=== PATIENT | male | born 1950 ===

== ENCOUNTER 2025-07-11 11:43 | Inpatient (IN) | payer MEDICARE, OTHER, SELFPAY ==
[2025-07-11] VITALS (9 sets, daily range): BP systolic 132–155; BP diastolic 61–89; BMI 28.5
--- NOTE | 2025-07-11 05:38 | ED.GENMED ---
History of Present Illness
<Claudia Hernandez PA-C - Last Filed: 07/11/25 06:48>
General
Chief Complaint: Musculo-Skeletal Complaint
Source: patient and family
Exam Limitations: none
Time Seen by Provider: 07/11/25 05:13
Nursing documentation reviewed up to this point in time: agreed with
History of Present Illness
History of Present Illness:
see MDM
Past History
<Claudia Hernandez PA-C - Last Filed: 07/11/25 06:48>
Past History
ED Past Medical History: CAD, GERD, HTN, Hypercholesterolemia and NC
ED Past Surgical History: Cardiac (Cardiac catheterization in 2018)
Social History
Tobacco: Non-smoker
Alcohol: None
Drug: None
Personal:
Living: with family
Family History
Family History: Other
Review of Systems
<Claudia Hernandez PA-C - Last Filed: 07/11/25 06:48>
Review of Systems
Allergies reviewed?: Yes
All Other Systems: Not applicable
Phy Exam
<KARTHIKEYAN Leyva Last Filed: 07/11/25 06:48>
Physical Exam
Physical Exam:
GENERAL: Alert lying face down on stretcher; uncomfortable with changing position
HEAD: NCAT
NECK: no midline tenderness, active ROM intact, no paraspinal muscle tenderness;
CARDIAC: Regular rate and rhythm, no edema
LUNGS: Clear breath sounds bilaterally, no acute respiratory distress, no wheezes/rales/rhonchi
ABDOMEN: Soft, without focal tenderness, no r/g, no cvat, normal bowel sounds, nondistended
NEUROLOGICAL: Alert and oriented, no focal neuro deficits, CN intact, 5/5 strength, sensation intact, ambulation slight limp left leg
SKIN: Warm and dry, skin normal
MUSCULOSKELETAL: No edema, well perfused. Normal inspection of the left hip, left leg
Patient has no tenderness to palpation of the hip, minimal tenderness in the SI joint
He has no pain with flexion of the left hip, external rotation, but with internal rotation has discomfort
Back: No midline tenderness, no tednerness to palpation
negative straight leg raise Bilaterally
strength an dsensation intact
PSYCH: Normal and appropriate interaction.
Course
<Claudia Hernandez PA-C - Last Filed: 07/11/25 06:48>
Orders/Labs/Results
Orders:
Orders
07/11/25 05:29
0.9% Sodium Chloride 500 ml [Nss] 500 ml IV BOLUS
HYDROmorphone [Dilaudid] 1 mg IV NOW STA
Ondansetron Injectable [Zofran] 4 mg IV NOW STA
07/11/25 05:57
Complete Blood Count/With Diff Urgent
Comprehensive Metabolic Panel Urgent
Lipase Urgent
07/11/25 06:03
Ketorolac [Toradol] 15 mg IV NOW STA
07/11/25 06:41
Electrocardiogram (*1) Urgent
Reason for Study: Fatigue / Weakness
EKG- Treatment ONCE
Osmolality, Random Urine Urgent
Serum Osmolality Urgent
Urine Sodium Urgent
Abnormal Lab Results
07/11/25
05:57
RBC 4.43 L 10^6/uL
(4.70-6.10)
Hct 37.6 L %
(39.0-52.0)
Abs Immat Gran (auto) 0.1 H 10^3/uL
(0-0.05)
Absolute Neuts (auto) 7.5 H 10^3/uL
(1.4-6.5)
Absolute Lymphs (auto) 0.4 L 10^3/uL
(1.2-3.4)
Absolute Monos (auto) 0.7 H 10^3/uL
(0.1-0.6)
Immature Gran % 0.6 H %
(0-0.5)
Neutrophils % 86.7 H %
(42.2-75.2)
Lymphocytes % 4.3 L %
(20.5-51.1)
Sodium 120 L mmol/L
(135-145)
Chloride 88 L mmol/L
(98-107)
Creatinine 0.6 L mg/dL
(0.7-1.3)
Glucose 177 H mg/dl
(70-99)
Total Protein 5.9 L g/dl
(6.3-8.2)
07/11/25 05:57
07/11/25 05:57
Vital Signs
Initial and Last Documented VS:
Initial Vital Signs
Temp Pulse Resp BP Pulse Ox
97.6 F 74 16 155/89 99
07/11/25 05:07 07/11/25 05:07 07/11/25 05:07 07/11/25 05:07 07/11/25 05:07
Last Documented Vital Signs
Temp Pulse Resp BP Pulse Ox
97.6 F 74 16 155/89 99
07/11/25 05:07 07/11/25 05:07 07/11/25 05:07 07/11/25 05:07 07/11/25 05:40
<Gregg Burnham, DO - Last Filed: 07/11/25 06:45>
Orders/Labs/Results
Orders:
Orders
07/11/25 05:29
0.9% Sodium Chloride 500 ml [Nss] 500 ml IV BOLUS
HYDROmorphone [Dilaudid] 1 mg IV NOW STA
Ondansetron Injectable [Zofran] 4 mg IV NOW STA
07/11/25 05:57
Complete Blood Count/With Diff Urgent
Comprehensive Metabolic Panel Urgent
Lipase Urgent
07/11/25 06:03
Ketorolac [Toradol] 15 mg IV NOW STA
07/11/25 06:41
Electrocardiogram (*1) Urgent
Reason for Study: Fatigue / Weakness
EKG- Treatment ONCE
Osmolality, Random Urine Urgent
Serum Osmolality Urgent
Urine Sodium Urgent
Abnormal Lab Results
07/11/25
05:57
RBC 4.43 L 10^6/uL
(4.70-6.10)
Hct 37.6 L %
(39.0-52.0)
Abs Immat Gran (auto) 0.1 H 10^3/uL
(0-0.05)
Absolute Neuts (auto) 7.5 H 10^3/uL
(1.4-6.5)
Absolute Lymphs (auto) 0.4 L 10^3/uL
(1.2-3.4)
Absolute Monos (auto) 0.7 H 10^3/uL
(0.1-0.6)
Immature Gran % 0.6 H %
(0-0.5)
Neutrophils % 86.7 H %
(42.2-75.2)
Lymphocytes % 4.3 L %
(20.5-51.1)
Sodium 120 L mmol/L
(135-145)
Chloride 88 L mmol/L
(98-107)
Creatinine 0.6 L mg/dL
(0.7-1.3)
Glucose 177 H mg/dl
(70-99)
Total Protein 5.9 L g/dl
(6.3-8.2)
07/11/25 05:57
07/11/25 05:57
Vital Signs
Initial and Last Documented VS:
Initial Vital Signs
Temp Pulse Resp BP Pulse Ox
97.6 F 74 16 155/89 99
07/11/25 05:07 07/11/25 05:07 07/11/25 05:07 07/11/25 05:07 07/11/25 05:07
Last Documented Vital Signs
Temp Pulse Resp BP Pulse Ox
97.6 F 74 16 155/89 99
07/11/25 05:07 07/11/25 05:07 07/11/25 05:07 07/11/25 05:07 07/11/25 05:40
<Claudia Hernandez PA-C - Last Filed: 07/11/25 06:48>
MDM/Problems Addressed
Differential Diagnosis Includes:
see MDM
MDM/Problems Addressed:
Note:
CHIEF COMPLAINT(S)
Back pain radiating to the left leg, nausea, and vomiting.
HISTORY OF PRESENT ILLNESS
The patient, 75 y/o male, h/o CAD, HTN, HLD, presents with back pain that radiates from the left buttock/hip to the knee on the left leg. The pain started approximately two weeks ago after lifting a heavy object. He describes the pain as worsening
and persistent. went to orthopedist yesterday AM where he was given IM injection/trigger point NSAID injection and RX for MRI which pt had done yesterday without results.
he was given percocet an took a total of 3 tabs but the pain is worsening. he vomited x 3 at home just prior to arrival, unclear whether it was related to the oxy or to jus thaving pain
he is not having abdomianl pain, nausea,, abd swelling etc.
pt says he mostly has knee pain currently. There is mild numbness on the side of the leg, but he denies any bowel or bladder incontinence. The patient also reports that its challenging to sit, as this exacerbates the pain.
PAST MEDICAL AND SURIGICAL HISTORY
The patient takes a daily low-dose aspirin (referred to as a 'baby aspirin'), which he did not take recently.
ADDITIONAL HISTORY OBTAINED FROM SOURCES OTHER THAN THE PATIENT
The information about the patients condition and recent medical encounters was partially provided by the patients female electrician journeyman wireman, presumed to be his spouse. She confirmed the duration of the symptoms and the name of the prescribing physician for
the MRI and medications.
MEDICATIONS
The patient was prescribed and has taken oxycodone 5-325 mg, three times, leading to episodes of vomiting.
REVIEW OF SYSTEMS
- Neurological: Reports mild numbness on the side of the left leg.
- Gastrointestinal: Vomiting three times after taking prescribed medication; no abdominal pain.
- Genitourinary: Denies any urinary incontinence.
- Musculoskeletal: Severe pain radiating from back to left leg, particularly exacerbated with sitting.
PHYSICAL EXAM
see above
Nursing notes reviewed and vital signs reviewed.
PLAN
- Consideration of alternative pain management strategies due to vomiting after oxycodone.
- Further evaluation of MRI results when available.
- Monitor for any changes in neurological status, particularly regarding numbness and any potential bowel or bladder changes.
DIFFERENTIAL DIAGNOSIS
The Differential Diagnosis includes, in no particular order and is not limited to:
- Sciatica or lumbar radiculopathy
- Spinal disk herniation
- Hip joint pathology (e.g., osteoarthritis)
- Muscle strain or sprain
- Sacroiliac joint dysfunction
- Peripheral neuropathy
- Lumbar spinal stenosis
- Piriformis syndrome
- Trochanteric bursitis
- Infectious causes (e.g., epidural abscess)
75-year-old male with a history of CAD presents with 2 weeks of left-sided lumbar back pain radiating down the back of his leg to his knee. He happened to have orthopedic appointment yesterday and had an outpatient MRI at this hospital which was
not read yet. Patient was given a prescription for oxycodone. It sounds as if the oxycodone caused some nausea as the patient felt worse after the third dose and vomited several times just before arrival. He is also having increased pain in his
left leg specifically thigh and knee. He is not having any numbness tingling or weakness, there is no incontinence or urinary retention. Patient denied that he was excessively drinking water. He has never had an issue with his sodium before. On
exam he looks very uncomfortable with change in position but was comfortable lying flat on his stomach. He had normal strength and sensation to the leg without straight leg raise, no weakness. Did not femoral and DP pulses are intact. His abdomen
soft and nontender.
Patient's pain seems like lumbar radiculopathy and likely his vomiting was related to the opiates or related to pain however I did check his labs which show that he is hyponatremic with a sodium of 120.
Patient is awake and alert and oriented, he does feel generally weak.
Will order urine studies and admit to the hospitalist service
<Claudia Hernandez PA-C - Last Filed: 07/11/25 06:48>
*Pulse Oximetry
SaO2: 99
Oxygen Mode of Delivery: Room air
Patient hypoxic: no (99)
*Critical Care Note
Total Time (30-74mins, 75-104mins- exclusive of procedures): Not Applicable
ED Attending Note
<Claudia Hernandez PA-C - Last Filed: 07/11/25 06:48>
-
Portions of this chart may have been created with voice recognition software.� Occasional wrong word or��sound alike� substitutions may have occurred due to the inherent limitations of voice recognition software.
<Gregg Burnham, - Last Filed: 07/11/25 06:45>
ED Attending Note
Patient seen and examined by attending physician: Yes
ED Attending Note:
I reviewed and agree with history and treatment plan by Claudia Hernandez PA-C. My exam revealed
Physical Exam
General: Appears uncomfortable, alert and oriented x 3
Neck: supple. no meningeal signs. normal posterior pharynx
Heart: s1/s2 regular rate and rhythm, no murmur. equal radial
pulses.
HEENT: Pupils equal round reactive to light, EOMI
Lungs: no acute respiratory distress. clear bilaterally
Abdomen: normal bowel sounds. not tender. no CVAT
Neuro: alert and oriented. no focal neurological deficits cranial nerves II through XII intact
Skin: no rash
Psychiatric: well kept. interactive and cooperative
Extremities: no edema. no calf tenderness. negative homans. good distal pulses
75-year-old male with left leg pain and back pain. MRI completed, but not read. Patient had vomited, after taking oxycodone. Is found to have a sodium of 120. Unclear etiology, possibly hyperhydration. Will admit for further workup and
evaluation, as well as pain control.
Discharge Plan
Departure
Discharge Problem:
Hyponatremia, Back pain
Prescriptions:
No Action
multivitamin [Daily Multiple] 1 EACH tablet
1 ea PO DAILY
atorvastatin 40 MG tablet
40 mg PO HS
aspirin [Aspir-Low] 81 MG tablet,delayed release (DR/EC)
81 mg PO DAILY
metoprolol succinate 25 MG tablet extended release 24 hr
25 mg PO DAILY
amlodipine-benazepril 1 EACH capsule
1 ea PO DAILY
clopidogrel 75 MG tablet
75 mg PO DAILY
nitroglycerin 0.4 MG tablet, sublingual
0.4 mg sublingual [id number] PRN (Reason: chest pain)
bupropion HCl 150 MG tablet extended release 24 hr
1 cap PO Daily
pantoprazole 40 MG tablet,delayed release (DR/EC)
20 mg PO DAILY
lamotrigine 100 MG tablet
100 mg PO BID
Interventions
Interventions:
*Risk Screen - Suicide Last Done: 07/11/25 05:07
*General Assessment Last Done: 07/11/25 05:07
*Neglect/Abuse Screening Last Done: 07/11/25 06:43
ED-Musculoskeletal Assessment Last Done: 07/11/25 06:00
Discharge Date and Time
Print Language: KOSOVAN
[2025-07-11] MEDS: DILAUDID 1 MG IV (06:00)
[2025-07-11] MEDS: ZOFRAN 4 MG IV ×2 (06:00→12:57)
[2025-07-11] MEDS: NSS 500 IV (06:01)
[2025-07-11 06:06] LABS: Hematocrit 37.6 % (39.0-52.0); Hemoglobin 13.7 g/dL (13.0-18.0); Mean Corp Hgb Conc. 36.4 g/dL (33.0-37.0); Mean Corpuscular Volume 84.9 fL (80.0-94.0); Nucleated Red Blood Cells % 0 % (-); Platelet Count 206 10^3/uL (130-400); Red Cell Dist. Width 12.6 % (11.5-14.5)
[2025-07-11] MEDS: TORADOL 15 MG IV ×2 (06:20→19:24)
[2025-07-11 06:32] LABS: ALT (SGPT) 19 U/L (0-50); AST (SGOT) 18 U/L (17-59); Albumin 3.6 g/dl (3.5-5.0); Alkaline Phosphatase 63 U/L (38-126); Blood Urea Nitrogen 16 mg/dl (9-20); Calcium 8.8 mg/dl (8.4-10.2); Carbon Dioxide 27 mmol/L (22-30); Chloride 88 mmol/L (98-107); Glucose 177 mg/dl (70-99); Lipase 32 U/L (23-300); Potassium 3.6 mmol/L (3.5-5.1); Sodium 120 mmol/L (135-145); Total Protein 5.9 g/dl (6.3-8.2); eGFR > 60.00
--- NOTE | 2025-07-11 11:07 | HPS.HSE ---
Family Physician
-
Family Physician: Lawanda Delacruz
Chief Complaint
-
Back pain and leg pain
History of Present Illness
75-year-old gentleman was in his usual state of health but then 2 weeks ago he lifted heavy object and that same evening he had low back pain.
His neighbor is a chiropractor and he worked on his back.
He was feeling okay. Then over the last week he started to feel more obvious pain in the back and then he started to experience pain down his left buttock lateral thigh and up to the knee. He was able to manage the pain at home and go to work but
it really got worse this week. Yesterday it was even worse ;exacerbates with movment or sitting posture. He went to see pain specialist with the [facility] yesterday and had trigger point injection to the leftt buttock area. He was also
given a prescription for MRI of the lumbar back which he finished last evening. He says after getting out of that stretcher and MRI department he had significantly worsened pain which went through all evening and night and he was feeling miserable
so he came to the hospital.
He was given oxycodone yesterday and it really made him sick and throw up.
Here in the ER he had Dilaudid which helped but pain has recurred. Pain is 10 out of 10 now. He says most of his pain is now in the left knee area and some in the left lateral buttock area as well. He also is feeling 10 out of 10 pain in the
lower back area.
No weight changes.
No trauma.
No bowel or bladder dysfunction.
Medical History
Past Medical History
Past Medical History: Reports CAD (CT, apparently has a blocked artery which cannot be stented), HTN, Hypercholesterolemia and CT; Denies CHF, CVA, IDDM, NIDDM or Renal Failure
Past Surgical History: Reports Cardiac (Cardiac catheterization)
Social History
Tobacco: Non-smoker
Alcohol: None
Drug: None
Personal:
Living: With Family
Family History
Family History: Not pertinent
Allergies / Home Medications
Allergies reflects when Allergies were last updated in [facility].
Home Medications with original date entered in [facility]
Allergy/Medication List:
Allergies
Allergy/AdvReac Type Severity Reaction Status Date / Time
No Known Allergies Allergy Verified 07/11/25 05:11
Home Medications
atorvastatin 40 mg tablet 40 mg PO HS High cholesterol 09/08/18
nitroglycerin 0.4 mg sublingual tablet 0.4 mg sublingual [id number] PRN chest pain 11/18/18
bupropion HCl 150 mg 24 hr tablet, extended release 150 mg PO Daily Depression 03/20/21
lamotrigine 100 mg tablet 100 mg PO BID Neurological Condition 03/20/21
benazepril 40 mg tablet 40 mg PO DAILY 07/11/25
chlorthalidone 12.5 mg tablet 12.5 mg PO DAILY 07/11/25
hydralazine 50 mg tablet 50 mg PO BID 07/11/25
nebivolol 5 mg tablet 5 mg PO QPM 07/11/25
oxycodone-acetaminophen 5 mg-325 mg tablet 1 tab PO Q6HPRN PRN severe pains 07/11/25
pantoprazole 20 mg tablet,delayed release (Protonix) 20 mg PO QPM 07/11/25
Review of Systems
-
A 12 point ROS was completed and negative except as noted: Yes
Physical Exam
Vital Signs
Vital Signs
Temp Pulse Resp BP Pulse Ox
97.6 F 57 16 137/62 99
07/11/25 05:07 07/11/25 10:15 07/11/25 10:15 07/11/25 10:00 07/11/25 05:40
Physical Exam
General: No Comfortable (Due to pain. Lying in the right lateral position for comfort.)
Respiratory: Clear and Non Labored Respirations; No Accessory Resp Muscle Use
Cardiac: S1/S2 and Regular Rhythm; No Tachycardia
GI: Soft and Non Tender
Neuro: AO x 3; No No Motor Deficits (Difficult examination as he is in right lateral position for comfort. Movement of his back n the legs gives pain. Upper extremities 5 x 5 strength cervantes, lower extremity 5 out of 5 distally.)
Psych: Calm
Laboratory Results
-
07/11/25 05:57
07/11/25 05:57
Laboratory Results
Total Bilirubin 1.3 mg/dl (0.2-1.3) 07/11/25 05:57
AST 18 U/L (17-59) 07/11/25 05:57
ALT 19 U/L (0-50) 07/11/25 05:57
Alkaline Phosphatase 63 U/L (38-126) 07/11/25 05:57
Lipase 32 U/L (23-300) 07/11/25 05:57
Data Reviewed
-
Lab Data: Labs Reviewed by me
Impression/Plan
-
Acute severe low back pain with left leg pain which looks like sciatica-nontraumatic.
Admit to hospital due to intractable nature for pain management and further evaluation of severe hyponatremia.
Will try and obtain a report on the MRI of the lumbar spine he had yesterday
Start on Tylenol, tramadol, Flexeril, IV Dilaudid.
Add IV steroids for now
Consider epidural injection depending on MRI report.
Euvolemic hyponatremia-suspect secondary possibly pain and nausea/vomiting. Start fluid restriction to 40 ounces per day. Check TSH and cortisol. Check urine sodium and osmolality. Consult nephrology.
CAD status post prior CT-asymptomatic without angina. Continue with his home medication regimen
Hypertension-continue the home medication regimen
Hyperlipidemia-continue with statins
Full code
[2025-07-11] MEDS: DILAUDID 0.5 MG IV ×4 (11:08→22:59)
--- NOTE | 2025-07-11 12:05 | CM ---
Met with patient and spouse at bedside in the ED
Pharmacy verified: [facility] @ [phone]
Lives with ; multilevel home; 2 steps to enter, 20 steps to 2nd floor; railings present; half bath on 1st floor; 2nd floor bath has walk-in shower
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
DME: [employer]
NO home health or SNF utilization history
will provide transport home
Plan: anticipate discharge to home when stable; case management will monitor for needs and coordinated if recommended
[2025-07-11] MEDS: DILAUDID 0.25 MG IV (13:02)
--- NOTE | 2025-07-11 13:08 | W.CON.NEPH ---
Consultation
-
Date/Time Consultation Requested: 07/11/2025 12 PM
Date/Time Consultation Performed: 07/11/2025 1 PM
Requesting Provider: Dr. Alva
Performing Provider: Dr. Hood
Reason for Consultation: Hyponatremia
Medical History
-
Chief Complaint: Back pain
History of Present Illness:
75-year-old gentleman who has hypertension controlled on a multidrug regimen including chlorthalidone, hyperlipidemia controlled with statin therapy. He had lifted a heavy object about 2 weeks ago and developed low back pain. This pain then
worsened running down his left buttock into the thigh and to the knee. He saw orthopedic surgery and had a trigger point injection in the left buttock area, and anti-inflammatory according to the . He then had an MRI of the back yesterday.
However the middle of night the pain was significantly worsened and he developed nausea as well as vomiting which he believes may have been due to the narcotics. Because of this he came to the emergency room. The family reports that yesterday he
only ate a small chicken wrap for lunch with some fries. He then had a protein bar for dinner. He has been drinking regularly the usual mount of fluids. He has been taking his medications as prescribed. He denies any diarrhea. The pain is
reported as sharp and stabbing. He denies any numbness in the toes or feet but has numbness in a localized area around the knee. In the emergency room he was noted to have a sodium of 120.
Past Medical History
CAD, myocardial infarction
Hypertension
Hyperlipidemia
Social History
Tobacco: Non-Smoker
Alcohol: None
Family History
Family History: Not Pertinent
Allergies / Home Medications
Allergy/AdvReac Type Severity Reaction Status Date / Time
No Known Allergies Allergy Verified 07/11/25 05:11
�Medication �Instructions �Recorded �Confirmed �Type
atorvastatin 40 mg tablet 40 mg PO HS High cholesterol 09/08/18 07/11/25 History
nitroglycerin 0.4 mg sublingual 0.4 mg sublingual [id number] PRN 11/18/18 07/11/25 History
tablet chest pain
bupropion HCl 150 mg 24 hr tablet, 150 mg PO Daily Depression 03/20/21 07/11/25 History
extended release
lamotrigine 100 mg tablet 100 mg PO BID Neurological 03/20/21 07/11/25 History
Condition
benazepril 40 mg tablet 40 mg PO DAILY 07/11/25 07/11/25 History
chlorthalidone 12.5 mg tablet 12.5 mg PO DAILY 07/11/25 07/11/25 History
hydralazine 50 mg tablet 50 mg PO BID 07/11/25 07/11/25 History
nebivolol 5 mg tablet 5 mg PO QPM 07/11/25 07/11/25 History
oxycodone-acetaminophen 5 mg-325 1 tab PO Q6HPRN PRN severe pains 07/11/25 07/11/25 History
mg tablet
pantoprazole 20 mg tablet,delayed 20 mg PO QPM 07/11/25 07/11/25 History
release (Protonix)
Review of Systems
-
Back pain, nausea, vomiting
All other systems: Negative unless noted
Physical Exam
Vital Signs
Vital Signs
Temp Pulse Resp BP Pulse Ox
97.8 F 61 20 152/73 97
07/11/25 12:31 07/11/25 12:31 07/11/25 12:31 07/11/25 12:31 07/11/25 12:31
Lab Results
WBC 8.6 10^3/uL (4.8-10.8) 07/11/25 05:57
RBC 4.43 10^6/uL (4.70-6.10) L 07/11/25 05:57
Hgb 13.7 g/dL (13.0-18.0) 07/11/25 05:57
Hct 37.6 % (39.0-52.0) L 07/11/25 05:57
Plt Count 206 10^3/uL (130-400) 07/11/25 05:57
Sodium 120 mmol/L (135-145) L 07/11/25 05:57
Potassium 3.6 mmol/L (3.5-5.1) 07/11/25 05:57
Chloride 88 mmol/L (98-107) L 07/11/25 05:57
Carbon Dioxide 27 mmol/L (22-30) 07/11/25 05:57
BUN 16 mg/dl (9-20) 07/11/25 05:57
Creatinine 0.6 mg/dL (0.7-1.3) L 07/11/25 05:57
eGFR > 60.00 07/11/25 05:57
Glucose 177 mg/dl (70-99) H 07/11/25 05:57
Calcium 8.8 mg/dl (8.4-10.2) 07/11/25 05:57
Albumin 3.6 g/dl (3.5-5.0) 07/11/25 05:57
Physical Exam
Patient is awake alert oriented and in significant distress. Mood and affect were pleasant, insight and judgment were good. Pupils are equal round and reactive to light, extraocular movements are intact, sclera were anicteric. Hearing was normal,
ears and nose are intact. Oropharynx was clear. Neck was supple with trachea midline and no thyromegaly. Heart was regular rate and rhythm without rubs. Lower extremities without edema. Lungs were clear to auscultation bilaterally and with normal
excursion. Abdomen was soft, nontender, with normal active bowel sounds, and no hepatosplenomegaly. Skin was without rash and with normal turgor.
Data Reviewed
-
MRI: Image Personally Visualized and interpreted (MRI lumbar 07/10/2025 area of lucency L4)
Labs: Labs Reviewed by me
Old Records: Requested
Assessment/Plan
-
Assessment.
Hyponatremia
Back pain
Knee pain
Hypertension
hyperlipidemia
Plan
Saline IV fluids await urine studies though will need to be interpreted in face of chlorthalidone
Hold chlorthalidone
Fluid restriction 40 ounces
May require hypertonic saline
Pain management
Discussed with and patient
[2025-07-11] MEDS: ZESTRIL 40 MG PO (13:51)
[2025-07-11] MEDS: APRESOLINE 50 MG PO ×2 (13:51→19:24)
[2025-07-11] MEDS: LAMICTAL 100 MG PO ×2 (13:52→19:24)
[2025-07-11] MEDS: NSS 1000 IV ×2 (13:54→22:59)
[2025-07-11] MEDS: DECADRON 4 MG IV ×2 (13:55→21:16)
[2025-07-11] MEDS: ULTRAM 50 MG PO (14:05)
[2025-07-11] MEDS: FLEXERIL 5 MG PO (14:31)
[2025-07-11 15:19] LABS: C-Reactive Protein < 5.00 mg/L (0.0-10.00)
[2025-07-11 15:51] LABS: Cortisol, Random 36.6 ug/dl; TSH 0.50 uIU/ml (0.47-4.68)
[2025-07-11] MEDS: HEPARIN 5000 UNITS SC (16:02)
[2025-07-11] MEDS: BYSTOLIC 5 MG PO (18:02)
[2025-07-11] MEDS: PROTONIX 20 MG PO (18:03)
[2025-07-11] MEDS: LIPITOR 40 MG PO (19:24)
[2025-07-11 20:29] LABS: INR 0.97; PT 13.4 Sec (11.4-14.6)
[2025-07-11 20:39] LABS: Blood Urea Nitrogen 13 mg/dl (9-20); Calcium 8.7 mg/dl (8.4-10.2); Carbon Dioxide 28 mmol/L (22-30); Chloride 90 mmol/L (98-107); Estimated Creatinine Clearance 94 ml/min; Glucose 162 mg/dl (70-99); Potassium 4.2 mmol/L (3.5-5.1); Sodium 122 mmol/L (135-145); eGFR > 60.00
[2025-07-12] VITALS (8 sets, daily range): BP systolic 67–163; BP diastolic 61–76; PULSE 94; O2SAT 71
[2025-07-12] MEDS: DILAUDID 0.5 MG IV ×2 (02:30→08:42)
[2025-07-12] MEDS: TORADOL 15 MG IV ×2 (02:30→08:42)
[2025-07-12] MEDS: FLEXERIL 5 MG PO (03:39)
[2025-07-12] MEDS: ULTRAM 50 MG PO ×2 (03:40→17:18)
[2025-07-12] MEDS: DECADRON 4 MG IV (06:18)
[2025-07-12 07:54] LABS: Blood Urea Nitrogen 13 mg/dl (9-20); Calcium 8.6 mg/dl (8.4-10.2); Carbon Dioxide 30 mmol/L (22-30); Chloride 94 mmol/L (98-107); Estimated Creatinine Clearance 94 ml/min; Glucose 113 mg/dl (70-99); Potassium 4.6 mmol/L (3.5-5.1); Sodium 126 mmol/L (135-145); eGFR > 60.00
[2025-07-12] MEDS: WELLBUTRIN XL (24 hour extended release) 150 MG PO (08:51)
[2025-07-12] MEDS: APRESOLINE 50 MG PO ×2 (08:52→19:52)
[2025-07-12] MEDS: ZESTRIL 40 MG PO (08:52)
[2025-07-12] MEDS: LAMICTAL 100 MG PO ×2 (08:52→19:53)
--- NOTE | 2025-07-12 12:34 | CM ---
Chart reviewed and patient admitted with back pain, left leg sciatica, patient had epidural today, and will follow with progress with physical therapy.
Plan; To follow with patient progress in physical therapy for discharge planning needs. .
[2025-07-12] MEDS: MIRALAX 17 GRAMS PO (12:36)
[2025-07-12] MEDS: COLACE 100 MG PO ×2 (12:36→19:52)
[2025-07-12] MEDS: NSS 1000 IV (12:37)
--- NOTE | 2025-07-12 12:41 | W.PN.HOSP.TC ---
Today's Communication/Plan
-
Follow Na
CW PT tx
DC planning
Assessment / Plan
Assessment / Plan
Acute severe low back pain with left leg pain due to radiculopathy-nontraumatic.
MRI of the lumbar spine
1. MODERATE-SIZED LEFT CENTRAL INFERIOR DISC EXTRUSION at L3/L4 causing severe impingement on the descending left L4 nerve root.
2. Large diffuse disc bulge at L3/L4 causing MODERATE CENTRAL CANAL STENOSIS and moderate right neural foraminal narrowing.
3. Moderate right lateral recess stenosis and mild central canal stenosis at L4/L5.
4. Minimal central canal stenosis at L2/L3.
5. Mild right convex curvature of the upper lumbar spine.
Status post epidural injection today. Improved pain.
DC systemic steroids
Continue PT OT and pain regimen.
Euvolemic hyponatremia-suspect secondary possibly pain and nausea/vomiting plus or minus chlorthalidone. Start fluid restriction to 40 ounces per day. Appreciate nephrology input. Continue to hold chlorthalidone. Follow sodium.
CAD status post prior LA-asymptomatic without angina. Continue with his home medication regimen
Hypertension-continue the home medication regimen
Hyperlipidemia-continue with statins
Full code
Anticipated Discharge: 24 - 48 hours
Subjective/Interval History
-
Date of Service: July 12, 2025
S/P Epidural
No pain at rest since but hasnt worked out of bed yet
Objective Data
-
Labs:
Laboratory Results
07/12/25
06:31
Sodium 126 L
Potassium 4.6
Chloride 94 L
Carbon Dioxide 30
BUN 13
Creatinine 0.7
Glucose 113 H
Calcium 8.6
Vital Signs:
Vital Signs
Temp Pulse Resp BP Pulse Ox
97.7 F 58 16 154/74 97
07/12/25 11:57 07/12/25 11:57 07/12/25 11:57 07/12/25 11:57 07/12/25 11:57
I&O
07/11/25 07/12/25 07/13/25
06:59 06:59 06:59
Intake Total 1280 / 1280
Output Total 800 / 800
Balance 480 / 480
Physical Exam
-
General: Comfortable
Respiratory: Non Labored Respirations; Negative Accessory Resp Muscle Use
Cardiac: Regular Rhythm and S1/S2; Negative Tachycardic
Neuro: AO x 3; Negative No Motor Deficits
Psych: Calm; Negative Confused
Data Reviewed
-
Labs: Labs Reviewed by me
--- NOTE | 2025-07-12 13:39 | W.PN.NEPH.PH ---
Today's Communication / Plan
-
Samsca
Assessment/Plan
-
Assessment.
Hyponatremia
Back pain
Knee pain
Hypertension
hyperlipidemia
Plan
Hold chlorthalidone
Fluid restriction 40 ounces
Status post hypertonic sodium improved
Pain management= discontinued Keralac would avoid all NSAIDs in the setting of hyponatremia
Will give 1 dose of Samsca discontinue IV fluids
Discussed with and patient
-
-
Date of Service: July 12, 2025
CC / HPI / ROS
-
Chief Complaint:
Back pain
History of Present Illness:
Severe back pain presents with hyponatremia 120 elevated urine sodium on thiazide diuretic
Review of Systems:
Pain is resolved status post steroid injection
No nausea or vomiting
Labs
-
Labs:
WBC 8.6 10^3/uL (4.8-10.8) 07/11/25 05:57
RBC 4.43 10^6/uL (4.70-6.10) L 07/11/25 05:57
Hgb 13.7 g/dL (13.0-18.0) 07/11/25 05:57
Hct 37.6 % (39.0-52.0) L 07/11/25 05:57
Plt Count 206 10^3/uL (130-400) 07/11/25 05:57
Sodium 126 mmol/L (135-145) L 07/12/25 06:31
Potassium 4.6 mmol/L (3.5-5.1) 07/12/25 06:31
Chloride 94 mmol/L (98-107) L 07/12/25 06:31
Carbon Dioxide 30 mmol/L (22-30) 07/12/25 06:31
BUN 13 mg/dl (9-20) 07/12/25 06:31
Creatinine 0.7 mg/dL (0.7-1.3) 07/12/25 06:31
eGFR > 60.00 07/12/25 06:31
Glucose 113 mg/dl (70-99) H 07/12/25 06:31
Calcium 8.6 mg/dl (8.4-10.2) 07/12/25 06:31
Albumin 3.6 g/dl (3.5-5.0) 07/11/25 05:57
Physical Exam
-
Vital Signs:
Vital Signs
Temp Pulse Resp BP Pulse Ox
97.7 F 58 16 154/74 97
07/12/25 11:57 07/12/25 11:57 07/12/25 11:57 07/12/25 11:57 07/12/25 11:57
Respiratory:: Bilateral: CTA
Lung Excursion:: Normal
Abdomen:: Soft
Bowel Sounds:: Normal
Extremity Edema:: None: Bilateral:
[2025-07-12] MEDS: SAMSCA 15 MG PO (14:01)
[2025-07-12] MEDS: TYLENOL 650 MG PO (14:02)
[2025-07-12] MEDS: PROTONIX 20 MG PO (17:18)
[2025-07-12] MEDS: BYSTOLIC 5 MG PO (17:18)
[2025-07-12] MEDS: LIPITOR 40 MG PO (22:22)
[2025-07-13 03:02] VITALS: BP 168/75
[2025-07-13] MEDS: TYLENOL 650 MG PO (04:07)
[2025-07-13 07:25] VITALS: BP 165/75
[2025-07-13] MEDS: APRESOLINE 50 MG PO (07:51)
[2025-07-13] MEDS: ZESTRIL 40 MG PO (07:51)
[2025-07-13] MEDS: LAMICTAL 100 MG PO (07:51)
[2025-07-13] MEDS: COLACE 100 MG PO (07:51)
[2025-07-13] MEDS: WELLBUTRIN XL (24 hour extended release) 150 MG PO (07:52)
[2025-07-13] MEDS: MIRALAX 17 GRAMS PO (07:52)
[2025-07-13 08:18] LABS: Blood Urea Nitrogen 17 mg/dl (9-20); Calcium 9.2 mg/dl (8.4-10.2); Carbon Dioxide 31 mmol/L (22-30); Chloride 99 mmol/L (98-107); Estimated Creatinine Clearance 73 ml/min; Glucose 136 mg/dl (70-99); Potassium 3.8 mmol/L (3.5-5.1); Sodium 134 mmol/L (135-145); eGFR > 60.00
[2025-07-13 11:25] VITALS: BP 148/62
--- NOTE | 2025-07-13 11:57 | CM ---
Patient is for discharge to home today, physical therapy are recommending outpatient PT/OT, will reach out to physician for a script for outpatient PT/OT
Plan; Home today IMM given.
--- NOTE | 2025-07-13 13:18 | W.DCSUMMARY ---
Discharge Summary
Discharge Data
Date of Admission: 07/11/25
Date of Discharge: 07/13/25
-
Pending Results: No
Hospital Course
Primary diagnosis:
Acute left leg lumbar radiculopathy secondary to disc prolapse status post epidural injection
Acute hyponatremia
Secondary diagnosis:
Primary hypertension
Coronary artery disease
Hyperlipidemia
Hospital course:
Patient presented with acute severe low back pain with left leg radiculopathy. MRI of the lumbar spine showed-
1. MODERATE-SIZED LEFT CENTRAL INFERIOR DISC EXTRUSION at L3/L4 causing severe impingement on the descending left L4 nerve root.
2. Large diffuse disc bulge at L3/L4 causing MODERATE CENTRAL CANAL STENOSIS and moderate right neural foraminal narrowing.
3. Moderate right lateral recess stenosis and mild central canal stenosis at L4/L5.
4. Minimal central canal stenosis at L2/L3.
5. Mild right convex curvature of the upper lumbar spine.
He was requiring IV pain medication. Had a referral to IR who did an epidural injection with good symptom relief. He was seen by PT OT who recommended outpatient physical therapy. He was discharged on tramadol.
He also had a euvolemic hyponatremia and the urine lites suggest excessive ADH which was suspected secondary to pain and the nausea vomiting he was having with oxycodone at home. He is also on chlorthalidone which was started a week ago which could
be contributing. Was seen by nephrology-was put on fluid restriction, had a dose of Samsca and chlorthalidone was discontinued. Today sodium was 134. Advised to stay off of chlorthalidone.
Has got a history of hypertension and he was put on chlorthalidone last week apparently. He was advised to keep an eye on the blood pressure and if it systolic more than 160 to take 1-1/2 tablet of her hydralazine twice a day for now. He has a
coming up cardiology appointment next Tuesday.
Today patient was much comfortable just required Tylenol for pain. Denies any radiculopathy. Afebrile, blood pressure 148/62 saturation were fine on room air. S1 plus S2 heard regular chest was clear. Alert and oriented without confusion.
Medically stable for discharge home today.
Portions of this chart may have been created with voice recognition software. Occasional wrong word or 'sound alike' substitutions may have occurred due to the inherent limitations of voice recognition software.
Consultants on board:
Interventional radiology-[facility]
Nephrology-Yao Parada
Discharge Plan
-
Patient Disposition: Home with Home Care
Discharge Diagnosis/Procedures: Left lumbar radiculopathy secondary to disc prolapse status post epidural injection
Diet: Low Sodium
Activity: As tolerated
Driving Restrictions: As prior to admission
Bathing Restrictions: None
Other Services: PT and OT
Referrals:
Lawanda Delacruz CRNP [Family Provider, Family Practice] - in less than 1 week
Additional Discharge Medication Instructions: Chlorthalidone is being discontinued due to low sodium issues. If your blood pressure [top number] more than 160 at home take 1-1/2 tablet of hydralazine in the morning and in the evening till you see
your doctor on next Tuesday
Prescriptions:
New
acetaminophen 325 mg Tablet
650 mg PO Q4HPRN PRN (Reason: mild pain /fever >100.4) Qty: 1 0RF
polyethylene glycol 3350 17 gram Powder In Packet
17 g PO DAILY PRN (Reason: Constipation) Qty: 15 0RF
tramadol 50 mg Tablet
50 mg PO Q6HPRN PRN (Reason: Moderate pain) Qty: 20 0RF
Continued
atorvastatin 40 MG tablet
40 mg PO HS
nitroglycerin 0.4 MG tablet, sublingual
0.4 mg sublingual [id number] PRN (Reason: chest pain)
bupropion HCl 150 MG tablet extended release 24 hr
150 mg PO Daily
lamotrigine 100 MG tablet
100 mg PO BID
pantoprazole [Protonix] 20 mg Tablet,Delayed Release (/Ec)
20 mg PO QPM
oxycodone-acetaminophen 5-325 mg Tablet
1 tab PO Q6HPRN PRN (Reason: severe pains)
hydralazine 50 mg Tablet
50 mg PO BID
benazepril 40 mg Tablet
40 mg PO DAILY
nebivolol 5 mg Tablet
5 mg PO QPM
Discontinued
chlorthalidone 12.5 mg Tablet
12.5 mg PO DAILY
Discharge Orders:
Discharge Patient (As Directed); Ordered 07/13/25
Ordered By: Denton Alva
Discharge Date and Time
Print Language: ALBANIAN
== END 2025-07-13 14:38 | disposition home or self-care (01) | DRG 552 ==
LOC: 4 WEST ACU 11:43
PROVIDERS: Physician Assistant; Radiology Vascular & Interventional Radiology; ADMITTING PHYSICIAN Internal Medicine; CONSULT PHYSICIAN Specialist; EMERGENCY PHYSICIAN Emergency Medicine; FAMILY PHYSICIAN Nurse Practitioner Family
PROC: 3E0R33Z Introduction of Anti-inflammatory into Spinal Canal, Percutaneous Approach (ICD-10-PCS; 2025-07-12)
DX: M51.16 Intervertebral disc disorders with radiculopathy, lumbar region (principal); E87.1 Hypo-osmolality and hyponatremia; M48.061 Spinal stenosis, lumbar region without neurogenic claudication; I25.10 Atherosclerotic heart disease of native coronary artery without angina pectoris; I10 Essential (primary) hypertension; E78.00 Pure hypercholesterolemia, unspecified; I25.2 Old myocardial infarction; Z79.899 Other long term (current) drug therapy
CPT/HCPCS: 62323; 72148; 80048; 80053; 82533; 82570; 83690; 83930; 83935; 84300; 84443; 85025; 85610; 85652; 86140; 93005; 96361; 96374; 96375; 97163; 97166; 97535; 99285

== ENCOUNTER 2025-09-07 10:41 | Inpatient (IN) | payer MEDICARE, OTHER, SELFPAY ==
[2025-09-07] VITALS (12 sets, daily range): BP systolic 120–161; BP diastolic 52–78; BMI 26.7; BMI 26.8
[2025-09-07] MEDS: NITROSTAT (SUBLINGUAL) 0.4 MG SL ×2 (08:37→10:11)
--- NOTE | 2025-09-07 08:39 | ED.GENMED ---
History of Present Illness
General
Chief Complaint: Chest Pain
Source: patient, records and spouse
Exam Limitations: none
Time Seen by Provider: 09/07/25 08:26
Nursing documentation reviewed up to this point in time: agreed with
History of Present Illness
History of Present Illness:
75-year-old male with a past medical history of hypertension, hyperlipidemia, CAD (patient says medically managed, no stents) who presents to the emergency room with his for evaluation of chest pain. Of note patient had recent low back surgery
with Dr. Villalba at [facility] on 08/12/2025. He has been trying to increase his activity level recently and says he has been doing laps around his 3 acre property. He says that over the past few days he has been having some exertional chest pains�he
says after about 500 feet he will have some mild chest pains. He says that last night while he was resting he started to have similar chest pain and symptoms have been constant and progressive overnight. He describes a pressure sensation
substernal does not radiate. He says that he was not able to sleep due to the pain and with unremitting symptoms this morning he came to the ER. He does report some mild shortness of breath associated with it. He denies any nausea, vomiting,
diaphoresis. He denies any other acute complaints. He says that he does have a history of CAD and had a cardiac cath in 2018 for 'silent heart attack.' He says that he was told that his blockage was not amenable to stenting and his doctor has
been managing it medically; he says he sees Dr. Jesi Guzman.
Past History
Past History
ED Past Medical History: CAD, GERD, HTN, Hypercholesterolemia and MS
ED Past Surgical History: Cardiac (Cardiac catheterization in 2018)
Social History
Tobacco: Non-smoker
Alcohol: None
Drug: None
Personal:
Living: with family
Family History
Family History: Other
Review of Systems
Review of Systems
All Other Systems: ROS reviewed and negative except as documented in HPI and ROS
Constitutional: Denies fever or chills
Respiratory: Reports trouble breathing
Cardiac: Reports chest pain; Denies diaphoresis or syncope
ABD/GI: Denies abdominal pain, nausea or vomiting
: Denies flank pain
Musculoskeletal: Denies neck pain or back pain
Neurological: Denies dizzy or headache
Phy Exam
Physical Exam
Physical Exam:
General: Awake, alert, oriented x3; anxious appearing
Head: Normocephalic, atraumatic
Eyes: Conjunctiva normal, sclera anicteric
Throat: Airway intact, handling secretions
Neck: Trachea midline, supple without meningismus
Lungs: Clear to auscultation bilaterally, no wheezing, rales, rhonchi
Heart: Regular rate and rhythm, no murmurs, gallops, or rubs
Abd: Soft, non distended, nontender
Neuro: Grossly intact
Skin: no rash
Extremities: No edema in extremities, equal pulses in all extremities
Scores
Heart Failure Risk
Heart Failure Risk Score: Not Applicable
Heart Score for Chest Pain Patients
STEMI patient?: No
History: Highly Suspicious
ECG: Normal
Age: >/= 65 years
Risk Factors: >/= 3 Risk Factors or History of CAD
Troponin: </= Normal Limit
Heart Score for Chest Pain Patients: 6
Heart Score Risk: 20.3% MACE over next 6 weeks
Withdrawal Assessment of Alcohol
Withdrawal Assessment Completed?: Not applicable
Course
Orders/Labs/Results
Orders:
Orders
09/07/25 08:18
Electrocardiogram (*1) Urgent
Reason for Study: Chest Pain
EKG- Treatment ONCE
09/07/25 08:36
Nitroglycerin Sublingual [Nitrostat (Sublingual)] 0.4 mg .ROUTE .[facility]
Nitroglycerin Sublingual [Nitrostat (Sublingual)] 0.4 mg SL NOW STA
09/07/25 08:38
Electrocardiogram (*1) Urgent
Reason for Study: Chest Pain
EKG- Treatment ONCE
Aspirin Chewable [Low Strength Aspirin] 324 mg PO NOW STA
Nitroglycerin Sublingual [Nitrostat (Sublingual)] 0.4 mg SL NOW STA
09/07/25 08:39
CT Chest PE Study Urgent
Comment:
Reason For Exam: chest pain, recent surgery
09/07/25 08:44
Cardiovascular Evaluation Urgent
Comment: ADD ON
Complete Blood Count/With Diff Urgent
Comprehensive Metabolic Panel Urgent
Glycohemoglobin (HgbA1c) Urgent
PTT Urgent
Prothrombin Time Urgent
Troponin I Urgent
09/07/25 09:08
Consult Cardiology [CARDIOLOGY CONSULT] Urgent
Consulting Provider: Waqas Rincon
Was physician already notified: Yes
09/07/25 09:32
ECG as needed As Directed
ECG as needed for:: Chest Pain
Other reason for ECG as needed:: Please obtain ECGs with troponins q4h
09/07/25 10:02
Troponin I Q4H
09/07/25 10:09
Heparin 4,000 units IV NOW STA
Nitroglycerin Sublingual [Nitrostat (Sublingual)] 0.4 mg SL NOW STA
Nursing to Place Non Medication Order As Directed
Physician Order: PTT 6 hours after initial start of Heparin infusion
Above order entered?: Yes
09/07/25 10:10
Code Status As Directed
Resuscitation Status: Full Code
Bisacodyl [Dulcolax] 10 mg RECTAL [id number] PRN
Docusate W/Senna [Senokot-S] 1 tablet PO BIDPRN PRN
Polyethylene Glycol Powder [Miralax] 17 grams PO DAILYPRN PRN
Activity As Directed
Activity Level: Out of Bed- Chair
Vital Signs As Directed
Frequency: Per unit guidelines
Pulse Ox/spot Check [RESP] Routine
Quantity: 1
09/07/25 10:15
Heparin 23546 Units/250 ml 25,000 units in 250 ml IV PER PROTOCOL
Weight to be used for heparin protocol in kilograms (kg):: 81.9
Protocol:: Cardiac Tx/Acute Coronary
PTT Goal Range to be used:: PTT 73 to 111 seconds
Order type:: Initial
INITIAL Infusion Dose (UNITS/KG/hr) & then follow protocol:: 12 units/kg/hr
Infusion Dose in UNITS/hr & then follow protocol (UNITS/hr):: 1,000
INFUSION RATE in mL/hr & then follow protocol (mL/hr):: 10
PTT less than or equal to 64 seconds:: Increase rate by 200 units/hr (+ 2 mL/hr)
PTT 64.1 to 72.9 seconds:: Increase rate by 100 units/hr (+ 1 mL/hr)
PTT 73 to 111 seconds:: Target Range. No change in rate.
PTT 111.1 to 130.9 seconds:: Decrease rate by 100 units/hr (- 1 mL/hr)
PTT 131 to 199.9 seconds:: HOLD for 1 hr. Then decrease rate by 200 units/hr (- 2 mL/hr)
PTT greater than or equal to 200 seconds:: HOLD for 2 hrs & Notify Provider. Then decrease by 200 units/hr (-
2 mL/hr)
Lab follow-up:: Each change, PTT q6h until 2 consecutive are therapeutic. Then PTT
daily.
09/07/25 10:18
Admit Patient As Directed
Co-Sign Provider:
Level of Care: Inpatient admission
Assign to:: IVU
Physician / Group: VAN Rincon
Diagnosis: chest pain
Reason for Hospitalization: chest pain, concerning for unstable angina
Expected length of stay greater than two midnights?: Yes
ELOS- Estimated Length of Stay in days: 3
I certify the patient meets the requirements for IP care: Yes
09/07/25 13:58
Troponin I Q4H
09/07/25 17:45
Troponin I Q4H
09/07/25 20:00
Lamotrigine [Lamictal] 100 mg PO BID
Metoprolol [Lopressor] 25 mg PO BID
Pantoprazole [Protonix] 20 mg PO BID
09/07/25 21:45
Troponin I Q4H
09/07/25 22:00
Atorvastatin [Lipitor] 40 mg PO HS
09/08/25 06:00
Basic Metabolic Panel IN AM
Complete Blood Count/No Diff IN AM
09/08/25 08:00
Bupropion(24Hr)Extended Releas [WELLBUTRIN XL (24 hour extended release)] 150 mg PO DAILY
09/09/25 06:00
Basic Metabolic Panel IN AM
Complete Blood Count/No Diff IN AM
09/10/25 06:00
Basic Metabolic Panel IN AM
Complete Blood Count/No Diff IN AM
09/11/25 06:00
Basic Metabolic Panel IN AM
Complete Blood Count/No Diff IN AM
09/12/25 06:00
Basic Metabolic Panel IN AM
Complete Blood Count/No Diff IN AM
09/13/25 06:00
Basic Metabolic Panel IN AM
Complete Blood Count/No Diff IN AM
09/14/25 06:00
Basic Metabolic Panel IN AM
Complete Blood Count/No Diff IN AM
Abnormal Lab Results
09/07/25
08:44
MPV 10.5 H fL
(7.4-10.4)
Absolute Lymphs (auto) 0.6 L 10^3/uL
(1.2-3.4)
Neutrophils % 76.6 H %
(42.2-75.2)
Lymphocytes % 10.4 L %
(20.5-51.1)
Monocytes % 9.9 H %
(1.7-9.3)
BUN 8 L mg/dl
(9-20)
Glucose 120 H mg/dl
(70-99)
Hemoglobin A1c 6.2 H %
(4.0-5.9)
Total Protein 6.0 L g/dl
(6.3-8.2)
09/07/25 08:44
09/07/25 08:44
Vital Signs
Initial and Last Documented VS:
Initial Vital Signs
Temp Pulse Resp BP Pulse Ox
36.3 C 53 18 161/78 100
09/07/25 08:23 09/07/25 08:23 09/07/25 08:23 09/07/25 08:23 09/07/25 08:23
Last Documented Vital Signs
Temp Pulse Resp BP Pulse Ox
36.8 C 47 16 124/72 98
09/07/25 15:13 09/07/25 15:10 09/07/25 15:13 09/07/25 15:10 09/07/25 15:13
MDM/Problems Addressed
Differential Diagnosis Includes:
ACS, PE, dysrhythmia, dissection, GERD, costochondritis
MDM/Problems Addressed:
75-year-old male presents to the ER for evaluation of chest pain�he had back surgery 08/12 has been increasing his activity level and noted exertional symptoms over the past few days and has had resting chest pain since last night that started
rather abruptly while at rest. He could not sleep last night due to pain which prompted ER visit this morning. He is hypertensive here but otherwise normal vitals. His physical exam is as above. His EKG shows sinus rhythm no STEMI. Plan to
place an IV and check labs including a CBC and a CMP, coags, troponin. Plan to check CT chest to rule out PE or dissection�had recent surgery which puts him at risk for PE although atypical description of symptoms and no tachypnea, hypoxia, or
tachycardia to suggest this diagnosis. He should be ruled out for dissection with reported severe pain, hypertension and abrupt onset. Story is more worrisome however for unstable angina/MS with progressive exertional symptoms escalating and
resting pain since last night. Case was discussed with cardiology for consultation. Will treat with aspirin and nitroglycerin. Monitor very closely.
Initial labs reviewed: CBC and CMP no clinically significant abnormalities. Troponin negative x 1. CT chest is pending. Cardiology did evaluate patient agree that history is worrisome for ACS however agree with ruling out PE/dissection first
before aggressively treating this (i.e. nitroglycerin drip). Monitor very closely, anticipate admission pending CT chest.
CT chest shows no PE or other acute abnormalities. Discussed with cardiology will plan to start heparin, nitroglycerin infusion. They will admit to their service for continued management.
Chronic conditions affecting care:
CAD, hypertension
Acute Exacerbation and/or Progression of Chronic Illness:
Acutely hypertensive managed with nitroglycerin
Acute Exacerbation and/or Progression of Chronic Illness: HTN
*Radiology
Radiology exam reviewed: radiology read reviewed
*Pulse Oximetry
SaO2: 100
Oxygen Mode of Delivery: Room air
Patient hypoxic: no (100%)
*EKG
Interpreted by ED Provider?: Yes
Heart Rate: 55
Rate: bradycardiac
Rhythm: sinus
[place]: normal axis
Interval: normal interval
QRS Pattern: normal QRS
Ischemia: other (Inferior infarct age-indeterminate)
*Critical Care Note
Total Time (30-74mins, 75-104mins- exclusive of procedures): 32
comment:
Critical care statement: A total of 32 minutes of critical care time was provided for this patient. This includes management of unstable vital signs, evaluation of the patient at bedside, frequent reassessment, discussion with
consultants/hospitalist, and review of pertinent medical records. This time was separate from time utilized to perform any aforementioned documented procedures
Data Reviewed
Source: patient, records and spouse
Patient Management
Discussion with other providers: [employer] (Discussed with cardiology)
Escalation/DeEscalation of care consider admission/obs:
Admission indicated
ED Attending Note
-
Portions of this chart may have been created with voice recognition software.� Occasional wrong word or��sound alike� substitutions may have occurred due to the inherent limitations of voice recognition software.
Discharge Plan
Departure
Patient Disposition: Admit
Date of Disposition: 09/07/25
Time of Disposition: 10:10
Admit to doctor: Dr. Rincon
Presentation/result/management discussed w/ accepting MD/DO: cardiology
Discharge Problem:
ACS (acute coronary syndrome)
Interventions
Interventions:
*Risk Screen - Suicide Last Done: 09/07/25 08:23
*General Assessment Last Done: 09/07/25 08:23
*Neglect/Abuse Screening Last Done: 09/07/25 08:23
*ED- Fall Risk Assessment Last Done: 09/07/25 08:50
*ED COVID-19 Vaccine History Last Done: 09/07/25 08:50
*ED Influenza Vaccine History Last Done: 09/07/25 08:50
*Nursing Disposition Last Done: 09/07/25 11:45
ED- Cardiac Assessment Last Done: 09/07/25 08:56
Discharge Date and Time
Discharge Date/Time: 09/07/25 11:47
[2025-09-07] MEDS: LOW STRENGTH ASPIRIN 324 MG PO (08:48)
[2025-09-07 08:53] LABS: Hematocrit 43.4 % (39.0-52.0); Hemoglobin 14.4 g/dL (13.0-18.0); Mean Corp Hgb Conc. 33.2 g/dL (33.0-37.0); Mean Corpuscular Volume 92.3 fL (80.0-94.0); Nucleated Red Blood Cells % 0 % (-); Platelet Count 237 10^3/uL (130-400); Red Cell Dist. Width 12.6 % (11.5-14.5)
[2025-09-07 09:03] LABS: INR 1.02; PT 13.7 Sec (11.4-14.6)
[2025-09-07 09:04] LABS: APTT 28.7 Sec (23.4-35.0)
[2025-09-07 09:11] LABS: ALT (SGPT) 16 U/L (0-50); AST (SGOT) 17 U/L (17-59); Albumin 3.7 g/dl (3.5-5.0); Alkaline Phosphatase 92 U/L (38-126); Blood Urea Nitrogen 8 mg/dl (9-20); Calcium 9.2 mg/dl (8.4-10.2); Carbon Dioxide 30 mmol/L (22-30); Chloride 104 mmol/L (98-107); Estimated Creatinine Clearance 82 ml/min; Glucose 120 mg/dl (70-99); Potassium 3.9 mmol/L (3.5-5.1); Sodium 140 mmol/L (135-145); Total Protein 6.0 g/dl (6.3-8.2); eGFR > 60.00
[2025-09-07 09:16] LABS: Troponin I < 0.012 ng/ml
--- NOTE | 2025-09-07 09:26 | CON.CAR ---
Addendum entered and electronically signed by Waqas Rincon MD 09/07/25 11:19:
This will serve as H&P for patient admission.
Update: CT PE negative. Patient received 1 additional SL nitro and is now chest pain-free. He has been started on heparin due to concern for unstable angina. We will continue to trend troponins and ECGs every 4 hours. As of now, there is no
indication for emergent cardiac catheterization but we will continue to monitor for recurrent chest pain or arrhythmias on telemetry. We will obtain an echocardiogram today. Unfortunately he does not know what prior echocardiograms showed.
In terms of home meds, we will continue his atorvastatin. I have added on lipids and A1c. Antihypertensives held given that he is currently normotensive and Nebivolol held for bradycardia.
Original Note:
Consultation
Consultation Request
Date/Time Consultation Requested: 09/07/2025 at 9:08 AM
Date/Time Consultation Performed: 09/07/2025 at 9:15 AM
Requesting Provider: Brody Hernandez MD
Performing Provider: Waqas Rincon MD
Reason for Consultation: chest pain
Medical History
-
Chief Complaint: chest pain
History of Present Illness:
75-year-old man with history of medically managed coronary artery disease (follows with Dr. Guzman at [facility]), hypertension, and hyperlipidemia who presents with chest pain. Patient had back surgery in July. Was fairly immobile for 4 weeks and
now has been trying to increase physical activity. Has been getting chest pain walking around his yard. Overnight had unrelenting chest pain and was unable to sleep. Checked his BP this morning which was 170s�180s systolics (this is very high for
him). He came to the ER and was given 1 sublingual nitro and aspirin 325 mg. Pain decreased slightly but is still present at the time of my assessment. He has also had intermittent right calf pain for the past few weeks.
Past Medical History
Past Medical History: CAD, HTN and Hypercholesterolemia
Past Surgical History: Other (Back surgery in July)
Social History
Tobacco: Non-Smoker
Alcohol: Occasional
Personal:
Living: With Family
Family History
Family History: Reviewed & Not Pertinent
Allergies / Home Medications
Allergy/AdvReac Type Severity Reaction Status Date / Time
No Known Allergies Allergy Verified 07/11/25 05:11
�Medication �Instructions �Recorded �Confirmed �Type
atorvastatin 40 mg tablet 40 mg PO HS High cholesterol 09/08/18 09/07/25 History
nitroglycerin 0.4 mg sublingual 0.4 mg sublingual [id number] PRN 11/18/18 09/07/25 History
tablet chest pain
bupropion HCl 150 mg 24 hr tablet, 150 mg PO Daily Depression 03/20/21 09/07/25 History
extended release
lamotrigine 100 mg tablet 100 mg PO BID Neurological 03/20/21 09/07/25 History
Condition
benazepril 40 mg tablet 40 mg PO DAILY Blood Pressure 07/11/25 09/07/25 History
hydralazine 50 mg tablet 50 mg PO BID Blood Pressure 07/11/25 09/07/25 History
nebivolol 5 mg tablet 5 mg PO QPM Heart Disease/Condition 07/11/25 09/07/25 History
pantoprazole 20 mg tablet,delayed 20 mg PO BID Gastrointestinal Issue 07/11/25 09/07/25 History
release (Protonix)
acetaminophen 325 mg tablet 650 mg (2 x 325 mg) PO Q4HPRN PRN 07/13/25 09/07/25 Rx
mild pain /fever >100.4 #1 tab
Review of Systems
-
All other systems: Negative unless noted
Physical Exam
Vital Signs
Temp Pulse Resp BP Pulse Ox
97.4 F 55 13 127/78 100
09/07/25 08:23 09/07/25 08:42 09/07/25 08:42 09/07/25 08:43 09/07/25 08:43
Lab Results
09/07/25 08:44
09/07/25 08:44
Troponin I < 0.012 ng/ml 09/07/25 08:44
Physical Exam
General: Well Developed, Well Nourished and Other (Uncomfortable appearing but not in distress)
Respiratory: Clear and Non Labored Respirations
Cardiac: S1/S2 and Regular Rhythm; Negative Murmur, Rub or Peripheral Edema
Skin: Warm and Dry
Neuro: AO x 3
Impression / Plan
-
75-year-old man with history of medically managed coronary artery disease (follows with Dr. Guzman at [facility]), hypertension, and hyperlipidemia who presents with chest pain.
Chest pain
- Differential includes life threatening diagnoses: unstable angina versus pulmonary embolism in the setting of recent surgery. ECG unchanged from prior and nonischemic. First troponin negative.
- Follow-up CT PE. If negative, would recommend additional SL nitro with nitro drip if necessary to get him chest pain-free. If we are unable to get him chest pain free, we will proceed to cardiac catheterization.
- To decide on heparin infusion pending test results
- S/p aspirin 325 mg
- Trend troponins and ECGs every 4 hours
Coronary artery disease
- [facility] 2018: 20-30% distal left main, 40% OM1, occluded mid RCA with [id number] collaterals
- Aspirin and statin
Hypertension
- Trend BPs with above interventions
Data Reviewed
-
EKG: Tracing Personally Visualized and interpreted (NSR, borderline LBBB, old inferior infarct (unchanged from prior))
CT Scan: Image Personally Visualized and interpreted (no obvious large PE, wait for official read)
Medical Tests (Nuc Med, Echo etc): Report Reviewed by me and Discussed with Patient
Labs: Labs Reviewed by me, Discussed with Physician and Discussed with Patient
[2025-09-07 10:38] LABS: Troponin I < 0.012 ng/ml
[2025-09-07] MEDS: HEPARIN 4000 UNITS IV (10:56)
[2025-09-07] MEDS: HEPARIN 25000 UNITS/250 ML IV (10:57)
[2025-09-07 12:33] LABS: HDL Cholesterol 43 mg/dl; LDL Cholesterol, Calculated 54 mg/dl; Very Low Density Lipoprotein 14 mg/dl (0-30)
[2025-09-07 14:10] LABS: Glycohemoglobin (HgbA1c) 6.2 % (4.0-5.9)
[2025-09-07 14:39] LABS: Troponin I < 0.012 ng/ml
--- NOTE | 2025-09-07 17:02 | PTCARENOTE ---
Pt arrived from ER into 2243 @ 1140. Pt AAOx3 SB on the monitor Heparin gtt infusing @ 1000 units/HR. Pt describes as a chest pressure 1 out of 10 on numeric pain. Echo done. POC discussed with pt verbalized understanding. call zamora within reach.
[2025-09-07 17:16] LABS: APTT 99.7 Sec (23.4-35.0)
[2025-09-07] MEDS: PROTONIX 20 MG PO (19:37)
[2025-09-07] MEDS: LAMICTAL 100 MG PO (19:37)
[2025-09-07] MEDS: LIPITOR 40 MG PO (22:55)
--- NOTE | 2025-09-07 23:11 | PTCARENOTE ---
Pt rec'd at change of shift awake,alert with no c/o cp Lungs clear, occ. dry cough. Sinus reena on telemetry. pt reported some right calf pain pre hospital no warmth,swelling or rosalino's sign noted. Good pedal pulses b/l. ptt drawn awaiting results.
[2025-09-07 23:22] LABS: APTT 75.0 Sec (23.4-35.0)
[2025-09-08 04:16] VITALS: BP 156/68
--- NOTE | 2025-09-08 04:34 | PTCARENOTE ---
Pt reports no cp during the night. am labs sent
[2025-09-08 04:42] LABS: Hematocrit 38.0 % (39.0-52.0); Hemoglobin 13.2 g/dL (13.0-18.0); Mean Corp Hgb Conc. 34.7 g/dL (33.0-37.0); Mean Corpuscular Volume 90.9 fL (80.0-94.0); Platelet Count 201 10^3/uL (130-400); Red Cell Dist. Width 12.4 % (11.5-14.5)
[2025-09-08 04:51] LABS: APTT 73.5 Sec (23.4-35.0)
[2025-09-08 04:59] LABS: Blood Urea Nitrogen 11 mg/dl (9-20); Calcium 8.6 mg/dl (8.4-10.2); Carbon Dioxide 28 mmol/L (22-30); Chloride 105 mmol/L (98-107); Estimated Creatinine Clearance 82 ml/min; Glucose 95 mg/dl (70-99); Potassium 3.7 mmol/L (3.5-5.1); Sodium 135 mmol/L (135-145); eGFR > 60.00
[2025-09-08 07:10] VITALS: BP 143/68
[2025-09-08] MEDS: LAMICTAL 100 MG PO ×2 (08:35→20:20)
[2025-09-08] MEDS: PROTONIX 20 MG PO ×2 (08:35→20:20)
[2025-09-08] MEDS: WELLBUTRIN XL (24 hour extended release) 150 MG PO (08:36)
[2025-09-08 09:36] LABS: Troponin I 0.017 ng/ml
--- NOTE | 2025-09-08 09:54 | W.PN.CD ---
Today's Communication / Plan
-
Continue heparin, ASA, statin
[facility] tomorrow
Impression / Plan
-
75-year-old man with history of medically managed coronary artery disease (follows with Dr. Guzman at [facility]), hypertension, and hyperlipidemia who presents with chest pain, concerning for unstable angina.
Chest pain, concerning for unstable angina
- Troponins negative and ECG unchanged from prior but he has a very convincing story. I am worried about unstable angina. Currently chest pain-free so no emergent indication for cardiac catheterization.
- TTE 09/07/2025: LVEF 54%, possible hypokinesis of inferior/inferolateral wall
- S/p aspirin 325 mg. Continue aspirin 81 mg daily.
- Continue heparin drip
- N.p.o. past midnight for cath tomorrow
Coronary artery disease
- [facility] 2018: 20-30% distal left main, 40% OM1, occluded mid RCA with [id number] collaterals
- Aspirin and statin. Beta-doris held for bradycardia. LDL 54 on admission -> increase atorvastatin to 80 mg daily
Sinus bradycardia
- Acute on chronic. Asymptomatic. Heart rates appear somewhat lower than prior admission. Could be due to inferior [place]
- Hold beta-doris for now
Hypertension
- Trend BPs with above interventions
Subjective: No recurrence of chest pain. Has not needed any additional nitro. Remains on heparin drip.
Physical Exam
Vital Signs/Labs
Vital Signs
Temp Pulse Resp BP Pulse Ox
98.2 F 51 16 156/68 97
09/08/25 07:09 09/08/25 07:09 09/08/25 07:09 09/08/25 04:16 09/08/25 07:09
09/07/25 09/08/25 09/09/25
06:59 06:59 06:59
Actual Weight 181 lb 7.047 oz
09/08/25 04:23
09/08/25 04:23
PT 13.7 Sec (11.4-14.6) 09/07/25 08:44
INR 1.02 09/07/25 08:44
APTT 73.5 Sec (23.4-35.0) H 09/08/25 04:23
Triglycerides 72 mg/dl (10-149) 09/07/25 08:44
LDL Cholesterol, Calc 54 mg/dl 09/07/25 08:44
VLDL Cholesterol, Calc 14 mg/dl (0-30) 09/07/25 08:44
HDL Cholesterol 43 mg/dl 09/07/25 08:44
LAB Results
09/07/25 09/07/25 09/07/25
08:44 10:02 13:58
Troponin I < 0.012 < 0.012 < 0.012
09/07/25 09/07/25 09/08/25
17:45 21:45 09:04
Troponin I Cancelled Cancelled 0.017
Physical Exam
Constitutional: No acute distress and Comfortable
Cardiovascular: Rhythm & rate is regular, Pedal edema is absent, S1S2 is normal and Murmur/rub/gallop absent
Respiratory: Respiratory effort normal and Lungs clear to auscul.
Neuro/Psych: AO x 3
Data Reviewed
-
Date of Service: September 08, 2025
Medical Decision Making: Reviewed Test Results, Test Interpretation and Review of Case with other Provider
EKG: Tracing Personally Visualized and interpreted and Ordered by me
Echo: Report Reviewed by me
X-Ray/CT/US/MRI/NUC/PET: Image Personally Visualized and interpreted
Labs: Labs Reviewed by me
[2025-09-08] MEDS: HEPARIN 25000 UNITS/250 ML IV (10:20)
[2025-09-08] MEDS: ASPIR LOW (ENTERIC COATED) 81 MG PO (10:39)
[2025-09-08 11:15] VITALS: BP 131/66
[2025-09-08 15:42] VITALS: BP 134/68
--- NOTE | 2025-09-08 16:38 | PTCARENOTE ---
Assumed care of the pt @ 0700. Pt is AAOx3 SB on the monitor denies cp Heparin gtt infusing @ 1000 units/HR Pt is independent in the room call zamora within reach. POC discussed with pt.
[2025-09-08 19:30] VITALS: BP 134/64
--- NOTE | 2025-09-08 21:00 | PTCARENOTE ---
Assumed care at 1900. Patient alert and oriented x3. Denies any chest pain. Heparin gtt infusing. Patient sinus reena on tele with heart rates in the 50s. Plan of care reviewed with patient. Patient verbalized understanding. Call zamora within reach.
[2025-09-08] MEDS: LIPITOR 80 MG PO (22:35)
[2025-09-08 22:36] VITALS: BP 153/75
[2025-09-09] VITALS (12 sets, daily range): BP systolic 131–159; BP diastolic 57–67
[2025-09-09 04:03] LABS: Hematocrit 37.7 % (39.0-52.0); Hemoglobin 13.1 g/dL (13.0-18.0); Mean Corp Hgb Conc. 34.7 g/dL (33.0-37.0); Mean Corpuscular Volume 89.8 fL (80.0-94.0); Platelet Count 209 10^3/uL (130-400); Red Cell Dist. Width 12.4 % (11.5-14.5)
[2025-09-09 04:18] LABS: APTT 56.6 Sec (23.4-35.0)
[2025-09-09 04:41] LABS: Blood Urea Nitrogen 12 mg/dl (9-20); Calcium 8.6 mg/dl (8.4-10.2); Carbon Dioxide 27 mmol/L (22-30); Chloride 105 mmol/L (98-107); Estimated Creatinine Clearance 82 ml/min; Glucose 105 mg/dl (70-99); Potassium 3.7 mmol/L (3.5-5.1); Sodium 138 mmol/L (135-145); eGFR > 60.00
--- NOTE | 2025-09-09 05:18 | PTCARENOTE ---
Patient sleeping between care overnight. Patient denies any chest pain. AM labs collected. Heparin gtt increased to 1200 units/hr. Patient independent in room. Urinal at bedside. Remains sinus reena on tele. Call zamora within reach.
[2025-09-09] MEDS: LAMICTAL 100 MG PO (07:54)
[2025-09-09] MEDS: WELLBUTRIN XL (24 hour extended release) 150 MG PO (07:54)
[2025-09-09] MEDS: ASPIR LOW (ENTERIC COATED) 81 MG PO (07:54)
--- NOTE | 2025-09-09 09:32 | PTCARENOTE ---
pt aaox3. states no pain or sob. room air.
[2025-09-09] MEDS: PROTONIX 20 MG PO (10:38)
[2025-09-09] MEDS: HEPARIN 25000 UNITS/250 ML IV (10:38)
[2025-09-09 11:07] LABS: APTT 58.1 Sec (23.4-35.0)
--- NOTE | 2025-09-09 12:35 | W.PN.CD ---
Today's Communication / Plan
-
Cardiac catheterization today to clarify coronary anatomy.
Impression / Plan
-
Impression/Plan: 75-year-old man with history of medically managed coronary artery disease (follows with Dr. Guzman at [facility]), hypertension, and hyperlipidemia who presents with chest pain, concerning for unstable angina.
#Chest pain
-Concerning for unstable angina.
-Troponins negative and ECG unchanged from prior but he has a very convincing story.
-TTE 09/07/2025: LVEF 54%, possible hypokinesis of inferior/inferolateral wall.
-Continue aspirin and heparin gtt.
-Cardiac catheterization today to clarify coronary anatomy.
#Coronary artery disease
-Chronic.
-[facility] 2018: 20-30% distal left main, 40% OM1, occluded mid RCA with [id number] collaterals.
-Continue aspirin and statin. Beta-doris held for bradycardia.
#HLD
-Chronic, stable.
-LDL 54 on admission -> increase atorvastatin to 80 mg daily.
#Sinus bradycardia
-Acute on chronic. Asymptomatic.
-Heart rates appear somewhat lower than prior admission. Could be due to inferior [place].
-Hold beta-doris for now.
#Hypertension
-Chronic, stable.
#Prediabetes
-New diagnosis.
-HbA1c = 6.2%.
Subjective/Interval History:
No further chest pain.
DATA:
CTPE, 09/07/2025:
IMPRESSION:
No evidence of pulmonary embolism.
Pulmonary artery branching order level of the most proximal pulmonary embolism: N/A
Mild chronic hilar and mediastinal adenopathy, likely reactive. Slightly more prominent compared to prior examination from 2019.
Trace pericardial effusion.
Minor dependent atelectasis.
If the patient has emphysema, patient should be assessed for an annual low dose lung cancer CT program, as pulmonary emphysema is an independent risk factor for lung cancer.
TTE, 09/07/2025:
SUMMARY
1. Low normal left ventricular systolic function. LVEF 54%.
2. Possible hypokinesis of the inferior/inferolateral wall.
3. No significant valvular disease.
4. No prior study available for comparison.
Physical Exam
Vital Signs/Labs
Vital Signs
Temp Pulse Resp BP Pulse Ox
36.7 C 51 16 158/60 98
09/09/25 11:38 09/09/25 11:38 09/09/25 11:38 09/09/25 11:37 09/09/25 11:38
09/08/25 09/09/25 09/10/25
11:59 11:59 11:59
Actual Weight 82.3 kg
09/09/25 03:49
09/09/25 03:49
PT 13.7 Sec (11.4-14.6) 09/07/25 08:44
INR 1.02 09/07/25 08:44
APTT 58.1 Sec (23.4-35.0) H 09/09/25 10:44
Triglycerides 72 mg/dl (10-149) 09/07/25 08:44
LDL Cholesterol, Calc 54 mg/dl 09/07/25 08:44
VLDL Cholesterol, Calc 14 mg/dl (0-30) 09/07/25 08:44
HDL Cholesterol 43 mg/dl 09/07/25 08:44
LAB Results
09/07/25 09/07/25 09/07/25
08:44 10:02 13:58
Troponin I < 0.012 < 0.012 < 0.012
09/07/25 09/07/25 09/08/25
17:45 21:45 09:04
Troponin I Cancelled Cancelled 0.017
Physical Exam
Constitutional: No acute distress and Comfortable
EENT: Anicteric and Moist mucous membranes
Cardiovascular: Rhythm & rate is regular, Pedal edema is absent, JVD pressure is normal, S1S2 is normal and Murmur/rub/gallop absent
Respiratory: Respiratory effort normal, Lungs clear to auscul., Wheeze Absent, Crackles Absent and Rhonchi Absent
GI: Soft, Distention absent, Flat, Non tender and Normal bowel sounds
Neuro/Psych: AO x 3
Data Reviewed
-
Date of Service: September 09, 2025
Medical Decision Making: Reviewed Test Results, Independent Historian Assessment and Test Interpretation
EKG: Tracing Personally Visualized and interpreted and Report Reviewed by me
Echo: Report Reviewed by me
X-Ray/CT/US/MRI/NUC/PET: Image Personally Visualized and interpreted and Report Reviewed by me
Medical Tests (PFT, Pathology etc): Image Personally Visualized and interpreted and Report Reviewed by me
Labs: Labs Reviewed by me
Old Records: Reviewed
[2025-09-09 13:35] LABS: ACT-LR - POC 369 Seconds (116-155)
[2025-09-09] MEDS: NSS 1000 IV (14:09)
--- NOTE | 2025-09-09 14:13 | PTCARENOTE ---
report received form technical laboratory asst. pt back in room. right rad band on pt. pulse site checks as documented. reviewed with pt post cath orders for bedrest and no banding of wrist.
--- NOTE | 2025-09-09 14:39 | CM ---
spoke to pt in room, he is prev indep, lives with is in a 2 story home with 2 steps to enter. he denies any dc planning needs or dme's. plan is for dc to home when medically stable.
--- NOTE | 2025-09-09 15:32 | ITS.CL.CATH ---
Addendum entered and electronically signed by Saúl Cosme DO 09/09/25 16:06:
Additional procedures performed:
3. Successful IVUS of the distal left main coronary artery.
4. Successful IFR of the proximal LAD.
Original Note:
[employer] Lead - Catheterization
Cardiac Catheterization
Procedure Report:
CARDIAC CATHETERIZATION REPORT
Date of Procedure: 09/09/2025
Referring: Waqas Rincon M.D.
INDICATION: Known coronary artery disease; chest pain, concerning for unstable angina.
PROCEDURE:
1. Left heart catheterization
2. Coronary angiography.
A total of 54 minutes of procedural/moderate sedation was utilized. An independent ophthalmic medical assistant was present to assist with and help manage the patient's level of consciousness and physiologic status.
ACCESS:
1. 6 Armenian right radial artery using a modified Seldinger technique delete the.
CATHETERS:
1. 5 Armenian JR4.
2. 5 Armenian JL 3.5.
3. 6 Armenian JL 3.5 guiding catheter.
HEMODYNAMIC DATA
Weight (kg): 82.1
AO (s/d/x, mmHg): 123/61/86
LV (s/x mmHg): 125/14
AV gradient (x, mmHg): None.
LEFT VENTRICULOGRAPHY: Not performed.
CORONARY ANGIOGRAPHY
Dominance: Right.
Left Main: Normal size, bifurcating vessel. There is a 30-40% lesion in the distal margin of the left main coronary artery.
LAD: Normal size vessel giving rise to 3 diagonals. There is a 50% lesion in the proximal LAD spanning the origin of the first diagonal. There are luminal irregularities throughout the remainder of the vessel. The apical LAD is severely
tortuous.
Ramus: Congenitally absent.
Circumflex: Normal size, nondominant vessel giving rise to 1 significant obtuse marginal which subsequently divides into 2 daughter branches. There are luminal irregularities throughout.
RCA: Large size, dominant vessel with a large posterolateral arcade. The vessel is chronically totally occluded in its midportion. The RPDA, RPL and distal RCA are supplied by collaterals from the LAD/septal perforators as well as the
lower branch of OM1.
INTERVENTION(S)
1. Successful IVUS of the 30-40% distal left main coronary artery lesion, demonstrating nonocclusive MLA (MLA = 9.2 mm�).
2. Successful IFR of the 50% proximal LAD lesion demonstrating nonocclusive stenosis (IFR = 1.0).
Narrative:
The decision was made to perform intracoronary imaging. The diagnostic catheter was removed over a wire and exchanged for 6 Armenian JL 3.5 guiding catheter. The guiding catheter was advanced into the ascending aorta and seated in the left main
coronary artery. Additional heparin was given to obtain an ACT greater than 250 seconds. After crossing the lesion with a coronary wire into the LAD, an IVUS catheter was advanced through the guiding catheter and into the ostium of the artery.
Ring down was performed once the imaging crystal was no longer inside of the guiding catheter. The IVUS catheter was advanced into the proximal LAD. Intravascular ultrasound was performed in a retrograde fashion using a slow pullback. Intracoronary
imaging demonstrated calcific atherosclerotic disease in the proximal LAD as well as in the distal left main coronary artery. Minimal luminal area was measured within the left main coronary artery and found to be 9.2 mm�.
The decision was made to perform physiologic testing on the 50% proximal LAD lesion. The IVUS catheter and the power turn flex wire were withdrawn and an iFR wire was zeroed outside of the body, then inserted into the guiding sheath. The wire was
advanced and the transducer was normalized just outside of the guiding catheter tip. The wire was advanced into the mid LAD. Three iFR measurements were taken. The lesion was determined to be nonocclusive (1.0).
Coronary angiography was performed with the wire pulled back, demonstrating stable coronary anatomy.
Closure Device: Vascular band.
Radiation (mGy): 580.28
DAP (cm2.Gy): 48.3534
Fluoroscopy time (minutes): 5.7
CONCLUSIONS
1. Right dominant circulation with chronic total occlusion of the mid RCA, a nonocclusive 30-40% lesion in the distal left main coronary artery (MLA = 9.2 mm�), a nonocclusive 50% proximal LAD lesion (iFR = 1.0) and luminal irregularities
throughout the remainder of the coronary tree with collaterals from the LAD septal perforators and circumflex supplying the distal RCA, the RPDA and the RPL.
2. Mildly elevated filling pressures (LVEDP = 14 mmHg at 82.1 kg).
RECOMMENDATIONS:
1. Expectant management after cardiac catheterization via right radial approach.
2. Limited weight bearing on the right wrist for one week.
3. Aggressive secondary prevention with high-dose, high potency statin.
4. OMT/GDMT as hemodynamics will tolerate.
5. Symptoms may be due to esophageal spasm. We will start amlodipine 2.5 mg daily. Start famotidine 20 mg daily.
6. Stable for outpatient follow-up.
Copy to: Waqas Rincon M.D., KUSUM Soto, Jesi Guzman M.D.
Saúl Cosme DO, FACC, FACP
--- NOTE | 2025-09-09 16:24 | W.DS.TRANS ---
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
-
Discharge Instructions:
Discharge Diagnosis/Procedures cardiac catheterization
Diet Low Cholesterol
Driving Restrictions No driving for 24 hours
Instructions:
Stand-Alone Forms: DC Instructions- Cath/EP Lab
Changes to Home Medications: Yes
Discharge Medications:
DC Medications w/original date entered in [facility] [employer] [facility]
nitroglycerin 0.4 mg sublingual tablet 0.4 mg sublingual [id number] PRN chest pain 11/18/18
bupropion HCl 150 mg 24 hr tablet, extended release 150 mg PO Daily Depression 03/20/21
lamotrigine 100 mg tablet 100 mg PO BID Neurological Condition 03/20/21
benazepril 40 mg tablet 40 mg PO DAILY Blood Pressure 07/11/25
hydralazine 50 mg tablet 50 mg PO BID Blood Pressure 07/11/25
nebivolol 5 mg tablet 5 mg PO QPM Heart Disease/Condition 07/11/25
pantoprazole 20 mg tablet,delayed release (Protonix) 20 mg PO BID Gastrointestinal Issue 07/11/25
acetaminophen 325 mg tablet 650 mg (2 x 325 mg) PO Q4HPRN PRN mild pain /fever >100.4 #1 tab 07/13/25
amlodipine 2.5 mg tablet 2.5 mg PO DAILY #30 tabs 09/09/25
aspirin 81 mg tablet,delayed release 81 mg PO DAILY #0 tabs 09/09/25
atorvastatin 80 mg tablet 80 mg PO HS #30 tabs 09/09/25
famotidine 20 mg tablet 20 mg PO DAILY #30 tabs 09/09/25
Home Medication Changes
NEW: famotidine, aspirin, amlodipine
DOSE INCREASE: atorvastatin
Pending Results: No
[2025-09-09] MEDS: NORVASC 2.5 MG PO (17:15)
[2025-09-09] MEDS: PEPCID 20 MG PO (17:15)
== END 2025-09-09 18:12 | disposition home or self-care (01) | DRG 287 ==
LOC: IVU 10:41
PROVIDERS: Internal Medicine Cardiovascular Disease; ADMITTING PHYSICIAN Student in an Organized Health Care Education/Training Program; EMERGENCY PHYSICIAN Emergency Medicine; FAMILY PHYSICIAN Nurse Practitioner Family
PROC: 4A033BC Measurement of Arterial Pressure, Coronary, Percutaneous Approach (ICD-10-PCS; 2025-09-09)
PROC: B240ZZ3 Ultrasonography of Single Coronary Artery, Intravascular (ICD-10-PCS; 2025-09-09)
PROC: 4A023N7 Measurement of Cardiac Sampling and Pressure, Left Heart, Percutaneous Approach (ICD-10-PCS; 2025-09-09)
PROC: B2111ZZ Fluoroscopy of Multiple Coronary Arteries using Low Osmolar Contrast (ICD-10-PCS; 2025-09-09)
DX: I25.10 Atherosclerotic heart disease of native coronary artery without angina pectoris (principal); I25.82 Chronic total occlusion of coronary artery; R00.1 Bradycardia, unspecified; I10 Essential (primary) hypertension; R73.03 Prediabetes; E78.00 Pure hypercholesterolemia, unspecified; Z79.899 Other long term (current) drug therapy
CPT/HCPCS: 71275; 80048; 80053; 80061; 83036; 84484; 85025; 85027; 85347; 85610; 85730; 92978; 93005; 93306; 93458; 93799; 96365; 99152; 99153; 99291; C1753; C1769; C1894; Q9967